=== PATIENT | female | born 1980 | race Caucasian/White ===

== ENCOUNTER → 2017-01-24 | Day surgery (SDC) | payer MEDICARE, MEDICAID ==
[~2017-01-24] MED LIST: HYDROCODON-ACE1 EAC5 PO; NEURONTIN600 MG; XANAX0.5 MG PO
--- NOTE | ~2017-01-24 | EKG ---
PATIENT: JANETT SMALLS UNIT #: [id number] Ventricular Rate: 72 BPM Atrial Rate: 72 BPM P-R Interval: 144 ms QRS Duration: 84 ms Q-T Interval: 396 ms QTC Calculation(Bezet): 433 ms P [place]: 65 degrees Calculated R [place]: 89 degrees Calculated T [place]: 62 degrees Diagnosis Line: Normal sinus rhythm Diagnosis Line: Normal ECG Diagnosis Line: No previous ECGs available Diagnosis Line: Confirmed by KELVIN DIEGO MD ([id number]) on Diagnosis Line: 01/25/2017 6:39:39 AM INTERPRETING MD: RAINER
--- NOTE | ~2017-01-24 | OR ---
Unit #: [id number] #: [id number] Patient: KINSEY OLIVA [id number] [address] [address] [id number] MR#: [id number] NAME: KINSEY OLIVA ROOM: Date of Procedure: 01/24/2017 Admission Date: 01/24/2017 Surgeon: Phillip Beckman M.D. : 1980 Attending Physician: Phillip Beckman M.D. Primary Care Physician: Generic Doctor Not In System OPERATIVE REPORT PREOPERATIVE DIAGNOSES 1. Chronic pain syndrome. 2. Chronic arachnoiditis. 3. Post-laminectomy pain syndrome. POSTOPERATIVE DIAGNOSES 1. Chronic pain syndrome. 2. Chronic arachnoiditis. 3. Post-laminectomy pain syndrome. PROCEDURES PERFORMED 1. Implantation of Medtronic SynchroMed II intrathecal pump. 2. Implantation of Ascenda catheter. 3. Physician filling of pump. 4. Fluoroscopy. SURGICAL INDICATION AND RATIONALE Ms. Kinsey Oliva is a pleasant 36-year-old female, who has been having intractable low back pain and has had long-standing discogenic pain. The patient has had conservative treatment including nonsteroidal anti-inflammatory medications including primary care pediatrician, physical therapy, epidural injections, radiofrequency ablation, and culminating in a spinal fusion. The patient continues to complain of pain and has been using opioids and escalating doses with limited relief of pain. The patient is here to have an intrathecal pain pump placed in. The patient has undergone an epidural pain pump trial with hydromorphone in which she had about 80% to 85% relief in pain. The patient has had a cardiac evaluation with clearance along with psychological evaluation, which did not show any contraindication. The patient has undergone an in-detailed discussion with me regarding the risks, benefits, and alternatives available including discussions regarding the consent decree. The patient acknowledges understanding of the consent decree and I used a teach-back method to ascertain that the patient understood my explanations. The patient also had a detailed education with Kathrin Britt, who was a brewery representative from [employer]. Again, the consent decree was discussed in detail with the patient and all her questions were answered to the patient's satisfaction. DESCRIPTION OF PROCEDURE After obtaining full informed consent and after discussion with the patient of possible complications including infection, bleeding, paralysis, spinal headaches, , and other perioperative complications Unit #: [id number] #: [id number] Patient: KINSEY OLIVA were discussed with the patient and consent was obtained in front of nurseFawn in the preoperative area. The patient was then taken back to the procedure room, where a time-out was done in accordance to the joint commission guidelines where the patient's identity, procedure, and site of procedure were verified. The patient was then positioned in the supine position and the anesthesiologist induced general anesthesia and positioned the patient in prone position. The patient was then prepped and draped in the usual fashion. Then under fluoroscopic view, I was able to identify the interspace between L2 and L3 and after the skin target sites were anesthetized, I placed an incision measuring about 4 cm in length. With the help of the Bovie, I was able to undermine the subcutaneous tissue to create enough space to place the catheter and the anchor. I then placed a 17-gauge Tuohy needle to access the intrathecal space, which was achieved at first pass with clear flow of CSF. Once this was done, I removed the stylet of the catheter and fed an Ascenda catheter through the Tuohy needle to reach the upper border of T7 which was done under live fluoroscopic view in both AP and lateral views. Once this was done, the Tuohy needle along with stylet of the catheter were removed and then I placed a special anchoring device to anchor this catheter to the interspinous ligament. This anchor was then further secured using 3-0 Prolene sutures. This incision was then copiously irrigated with irrigant. I then anesthetized the skin in the left side of her low back. I made an incision measuring 6 cm in length and with the help of the Bovie, I was able to create a pocket to house the intrathecal pump. Once the pocket was created, it was copiously irrigated with irrigant. All bleeders were stopped. I then used a tunneling device to tunnel this catheter into the pocket. This catheter was then cut to size and then I attached this catheter to another segment of catheter, which was used to connect to the SynchroMed II pump. This catheter was a clip-on catheter connection. Once the pump was attached, I aspirated the sideport using a 24-gauge Felix needle in which I was able to get clear CSF. This signifies that the catheter and the pump system were intact. I then placed a Tyrx antibiotic pouch into the floor of the pocket and then placed the pump into the pocket, which snugly fit. I then sutured the pump down into the underlying tissue using 3-0 Prolene sutures via the 4 anchors. Once this was completed, the two incisions were carefully inspected and closed using interrupted 3-0 Vicryl sutures in 2 layers. The skin was then approximated with bekcy and a Telfa and Tegaderm dressing were placed. The patient was then brought back to the recovery room for neurological monitoring. PLAN OF CARE The patient had an uneventful recovery and was discharged home neurologically intact with plans to return to my office in 7 days to have the becky removed. I have started this patient's pump at a dose of 0.3 mg per day and the patient has the ability to access her patient occupational therapy aide to deliver 0.02 mg with 2 activations per day. The total maximum daily dose of the patient can access 0.3397 mg per day. I did explain the course of the surgical procedure with the patient's mother and they acknowledged understanding of my explanation. The patient was then discharged home neurologically intact with plans to return to my office in 7 days to have becky removed. The Medtronic SynchroMed catheter serial #[id number] and a Medtronic pump serial number is [id number]. Dictated by... Phillip Beckman M.D. Unit #: [id number] #: [id number] Patient: KINSEY OLIVA [place]/courtney TD: 01/25/2017 04:28 JOB #: [id number] OPERATIVE REPORT Page 1 of 1 X Phillip Beckman MD PROCEDURE OPERATIVE NOTE
[2017-01-24 07:59] LABS: BASOPHIL# 0.1 X10e3 (0-0.3); BASOPHIL% 0.9 % (0-2.5); EOSINOPHIL# 0.1 X10e3 (0-0.7); HEMATOCRIT 41.8 % (35.0-45.0); HEMOGLOBIN 13.5 gm/dL (12.0-16.0); LYMPHOCYTE# 3.5 X10e3 (1.0-3.5); MEAN CELL VOLUME 90.1 FL (83-96); MEAN CORPUSCULAR HEMOGLOBIN 29.2 PG (28-34); MEAN CORPUSCULAR HGB CONC 32.4 g/dL (30-36); MEAN PLATELET VOLUME 9.1 FL (6.5-11.5); MONOCYTE# 0.7 X10e3 (0-1.0); MONOCYTE% 7.2 % (3.0-12.0); NEUTROPHIL# 5.5 X10e3 (1.5-7.1); NEUTROPHIL% 55.9 % (40-75); PLATELET COUNT 233 X10e3 (140-420); RED BLOOD COUNT 4.64 X10e (3.90-5.30); RED CELL DISTRIBUTION WIDTH 15.4 % (11.0-15.5); WHITE BLOOD COUNT 9.9 X10e3 (4.0-10.5)
[2017-01-24 08:03] LABS: DIFF IND NO
== END | disposition home or self-care (01) ==
LOC: CSUR 07:04
PROVIDERS: Specialist
DX: G89.4 Chronic pain syndrome (principal); G03.1 Chronic meningitis; M96.1 Postlaminectomy syndrome, not elsewhere classified; M51.36 Other intervertebral disc degeneration, lumbar region; F17.210 Nicotine dependence, cigarettes, uncomplicated; J45.909 Unspecified asthma, uncomplicated; E66.01 Morbid (severe) obesity due to excess calories; I27.2 Other secondary pulmonary hypertension; Z87.440 Personal history of urinary (tract) infections; Z88.0 Allergy status to penicillin; Z68.35 Body mass index [BMI] 35.0-35.9, adult; Z88.6 Allergy status to analgesic agent; Z88.1 Allergy status to other antibiotic agents; Z98.890 Other specified postprocedural states; Z88.2 Allergy status to sulfonamides; Z79.899 Other long term (current) drug therapy
CPT/HCPCS: 77003; 84703; 85025; 93005; C1772; J0330; J1170; J2250; J2270; J2405; J3010; J3370